=== PATIENT | female | born 1970 | race Caucasian/White ===

== ENCOUNTER 2020-11-23 10:47 | Emergency (ER) | payer MEDICARE, SELFPAY ==
[2020-11-23 11:06] VITALS: BP 129/78; PULSE 107; RESP 16; TEMP 36.6; O2SAT 99; BMI 23.6
--- NOTE | 2020-11-23 12:45 | ED_ITS ---
HPI - General Adult General: Chief complaint: General Medical Stated complaint: Need Fluid Removed Time Seen by Provider: 11/23/20 12:44 History of Present Illness: HPI narrative: Ms. Weinberg is a 50-year-old lady with significant history of stage IV pancreatic cancer who presents to the emergency department due to abdominal discomfort and concern over recurrence of ascites. She is currently undergoing chemotherapy and follows in [place] at [facility] for her oncology care. She has a local PCP. She continues to get chemotherapy as well as albumin infusions, last chemo was approximately 5 days ago and albumin infusion was 2 days ago. Over the past 3 weeks she has required 2 episodes of paracentesis for volume overload the last one was approximately 1 week ago. At that time, reportedly, ascites is felt to be malignant. She has had gradual onset of increased abdominal distention which causes lower extremity edema and mild shortness of breath. Intensity of symptoms is now moderate. The course has been worsening. She denies other golden ges in health, infectious symptoms, trauma, specific exacerbating or alleviating factors, or any other changes. Per outside records review patient's chemotherapy regimen started with FOLFIRINOX on 11/2018. Oxaliplatin discontinued and irinotecan dose decreased in early 2019. 11/05/2020 2300s cc fluid removed. 11/16/20 5000 cc paracentesis. Labs for note 11/19/2020 WBC 16.3, hemoglobin 9.5, platelets 271. Does have history of neutropenic fever, is on Neulasta. Outside imaging per note 09/21/2020 CT abdomen and pelvis. Interval placement of common bile duct stent with pneumobilia. 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 Review of Systems General: Reports: 10 or more systems reviewed and unremarkable except in HPI and below Physical Exam Narrative: EXAM NARRATIVE: GENERAL/CONSTITUTIONAL -chronically ill-appearing, frail. No acute distress. Nontoxic. Eyes - no conjunctival injection. No scleral icterus. ENMT - Atraumatic external nose and ears. Moist mucous membranes NECK - supple. trachea midline CARDIOVASCULAR - regular rate and rhythm. Bilateral lower extremity edema 2+. RESPIRATORY -clear to auscultation bilaterally. No retractions or accessory muscle use. ABDOMEN/GI - generalized tenderness to palpation, distended, fluid present. MSK - Extremities without obvious deformity or trauma SKIN - Warm, Dry NEURO - alert and appropriately oriented. Moves all extremities equally. PSYCH - Appropriate mood and affect Course ED course: - Patient was seen and evaluated by me at bedside - Patient placed on cardiac monitors, IV access obtained - Initial evaluation notable for chronically ill appearance, abdominal tenderness and distention consistent with reported history. - Labs notable for marked leukocytosis, difficult to interpret in the context of Neulasta use. Normocytic anemia. Metabolic panel notable for likely mild dehydration, potassium 5.3, creatinine 1.4. Fluids given. - Discussed case with Dr. Tang of radiology, paracentesis performed, patient tolerated procedure well. She had subjective improvement in symptoms. - Fluid analysis was notable for 289 PMNs per microliter in the ascites concerning for infection. - I discussed this finding at length with the patient. I recommended admission for IV antibiotics. The patient wishes for discharge with close follow-up despite this acknowledged recommendation. I explained risks and benefits of admission versus discharge, I answered all questions, the patient understands risks and benefits and expresses rational goal oriented thought process. She has capacity at this time to make medical decisions regarding her care. She plans to call her oncologist first thing in the morning. She understands that she may return to the emergency department for any reason at any time. - Prescriptions were discussed with the patient, including the far more limited evidence supporting an outpatient regimen. Patient verbalized understanding. - Patient discharged in fair condition. Vital Signs: Vital signs: Vital Signs Temperature 98.7 F 11/23/20 19:15 Pulse Rate 76 11/23/20 19:15 Respiratory Rate 17 11/23/20 19:15 Blood Pressure 110/78 11/23/20 19:15 Pulse Oximetry 96 11/23/20 19:15 MDM - General Adult Medical Records: Attestation: I reviewed the patient's medical records. Lab Data: Attestation: I reviewed the patient's lab results. Labs: Lab Results 11/23/20 11/23/20 11/23/20 14:05 14:05 14:05 WBC 47.4 10^3/uL H* 1 0^3/uL (4.0-10.0) RBC 2.86 10^6/uL L 10 ^6/uL (4.1-5.3) Hgb 8.4 g/dL L g/dL (11.5-15.3) Hct 27.6 % L % (37.0-47.0) MCV 96.5 fl fl (81-99) MCH 29.4 pg pg (28.0-34.0) MCHC 30.4 g/dL g/dL (30.0-36.0) RDW 17.1 % H % (12.1-15.1) Plt Count 282 10^3/cmm 10^3 /cmm (130-400) MPV 10.0 fL fL (7.4-10.4) Neut % (Auto) 97.3 % % Lymph % (Auto) 2.2 % % [place] % (Auto) 0.4 % % Eos % (Auto) 0.1 % % Baso % (Auto) 0.0 % % Neut # (Auto) 29.90 10^3/uL H 1 0^3/uL (1.8-7.7) Lymph # (Auto) 1.1 10^3/uL 10^3/ uL (0.8-4.8) [place] # (Auto) 0.2 10^3/uL 10^3/ uL (0.2-0.9) Eos # (Auto) 0.0 10^3/uL 10^3/ uL (0.0-0.8) Baso # (Auto) 0.0 10^3/uL 10^3/ uL (0.0-0.1) Nucleated RBC % (a uto) 0 % % Nucleated RBCs # 0.0 /100WBC /100W BC Differential Comme nt PT 16.20 SECONDS H S ECONDS (12.1-14.9) INR 1.26 H (0.8-1.2) APTT 30.2 SECONDS SECO NDS (23.9-36.7) Sodium 132 mmol/L L mmol /L (136-145) Potassium 5.3 mmol/L H mmol /L (3.5-5.1) Chloride 94 mmol/L L mmol/ L (98-107) Carbon Dioxide 27 mmol/L mmol/L (22-29) Anion Gap 16.3 (5-19) BUN 36 mg/dL H mg/dL (6-20) Creatinine 1.4 mg/dL H mg/dL (0.5-0.9) GFR Calculation 40.1 mL/min L mL/ min (90-130) Glucose 270 mg/dL H mg/dL (65-115) Calculated Osmolal ity 292 mOsm/kg mOsm/ kg (285-295) Calcium 8.3 mg/dL L mg/dL (8.5-10.5) Total Bilirubin 0.6 mg/dL mg/dL (0.15-1.2) AST 36 U/L H U/L (0-32) ALT 18 U/L U/L (0-33) Alkaline Phosphata se 391 IU/L H IU/L (35-105) Total Protein 6.5 g/dL L g/dL (6.6-8.7) Albumin 3.2 g/dL L g/dL (3.5-5.2) Globulin 3.3 g/dL g/dL (1.3-4.6) Fluid Color Fluid Appearance Fluid WBC Fluid RBC Fluid Tot Cell Cou nt Fld Polynuclear WB Cs # Fld Polynuclear WB Cs % Fl Mononucl WBCs # (Auto) Fl Mononuclear % A uto Fluid Glucose Fluid Total Protei n Fluid Albumin Fluid LDH Fluid Amylase Fluid Alk Phosphat ase Peritoneal Color Peritoneal Appeara nce Peritoneal WBC Peritoneal RBC Periton Mononu # A uto Mononuclear WBCs % Polynuclear WBCs % Perit Polynuc WBCs # Peritoneal Diff Co mmnt Peritoneal Tot Pro tein Peritoneal Albumin Peritoneal LDH Peritoneal Glucose Peritoneal Amylase 11/23/20 11/23/20 15:00 15:00 WBC RBC Hgb Hct MCV MCH MCHC RDW Plt Count MPV Neut % (Auto) Lymph % (Auto) [place] % (Auto) Eos % (Auto) Baso % (Auto) Neut # (Auto) Lymph # (Auto) [place] # (Auto) Eos # (Auto) Baso # (Auto) Nucleated RBC % (a uto) Nucleated RBCs # Differential Comme nt Cancelled PT INR APTT Sodium Potassium Chloride Carbon Dioxide Anion Gap BUN Creatinine GFR Calculation Glucose Calculated Osmolal ity Calcium Total Bilirubin AST ALT Alkaline Phosphata se Total Protein Albumin Globulin Fluid Color Cancelled Fluid Appearance Cancelled Fluid WBC Cancelled Fluid RBC Cancelled Fluid Tot Cell Cou nt Cancelled Fld Polynuclear WB Cs # Cancelled Fld Polynuclear WB Cs % Cancelled Fl Mononucl WBCs # (Auto) Cancelled Fl Mononuclear % A uto Cancelled Fluid Glucose Cancelled Fluid Total Protei n Cancelled Fluid Albumin Cancelled Fluid LDH Cancelled Fluid Amylase Cancelled Fluid Alk Phosphat ase Cancelled 61 IU/L IU/L Peritoneal Color Pale yellow (Pale Yellow) Peritoneal Appeara nce Hazy (Clear) Peritoneal WBC 600 /uL /uL Peritoneal RBC 0 10^3/uL 10^3/uL Periton Mononu # A uto 0.311 10^3/uL 10^ 3/uL Mononuclear WBCs % 51.800 % % Polynuclear WBCs % 48.200 % % Perit Polynuc WBCs # 0.289 10^3/uL 10^ 3/uL Peritoneal Diff Co mmnt Yes Peritoneal Tot Pro tein 2.6 g/dL g/dL Peritoneal Albumin 1.5 g/dL g/dL Peritoneal LDH 155.0 U/L U/L Peritoneal Glucose 248.0 mg/dL mg/dL Peritoneal Amylase 8 U/L L U/L (88-109) Discharge Plan Discharge Patient Disposition: Home Clinical Impression: Ascites, Abdominal pain, Leukocytosis Condition: Fair Prescriptions: New levofloxacin 750 mg tablet 750 mg PO DAILY 5 Days Qty: 5 RF: 0 No Action furosemide 40 mg tablet 80 mg PO BID@08,16 RF: 0 metolazone 2.5 mg tablet See Rx Instructions .ROUTE .COMPLEX RF: 0 magnesium 500 mg Tablet 500 mg PO DAILY RF: 0 Zyrtec 10 mg Tablet 10 mg PO DAILY PRN (Reason: Allergy Symptoms) RF: 0 ondansetron HCl 8 mg tablet 8 mg PO Q8H PRN (Reason: Nausea And Vomiting) RF: 0 venlafaxine 150 mg capsule,extended release 24hr 150 mg PO QAM RF: 0 morphine 100 mg tablet extended release 100 mg PO TID@00,08,16 RF: 0 insulin aspart U-100 [Novolog U-100 Insulin aspart] 100 unit/mL solution See Rx Instructions .ROUTE .COMPLEX RF: 0 Prilosec OTC 20 mg Tablet,Delayed Release (Dr/Ec) 20 mg PO QAM RF: 0 oxycodone 20 mg tablet 20 mg PO Q4H PRN (Reason: Pain) RF: 0 potassium chloride 20 mEq tablet extended release 40 meq PO BID RF: 0 Vitamin C 1 tab PO DAILY RF: 0 calcium 1 tab PO DAILY RF: 0 Centrum Silver Women 8 mg iron-400 mcg-300 mcg Tablet 1 tab PO DAILY RF: 0 Discharge Orders: Discharge ED (Routine); Ordered 10/11/21 Ordered By: Fahad Caraballo Referrals: Yu Benjamin MD [Primary Care Provider] - Discharge Diet: Usual diet Discharge Activity: Resume usual activity Patient Instructions: Leukocytosis (ED), Ascites (ED), Abdominal Pain (ED) Activity Restrictions/Additional Instructions: Thank you for visiting the emergency department. You were seen and evaluated for ascites. This is most likely secondary to your cancer. Labs revealed a markedly elevated white blood cell count which may be secondary to your medications. Additionally you were found to have an abnormally high level of white blood cells and your ascitic fluid analysis. As discussed, this is concerning for infection. The most validated treatment is IV antibiotics and we recommended admission which she declined at this time. You will be given a prescription for oral antibiotics. Please call your oncology team first thing in the morning. Please return to the emergency department for anything that you are concerned about and feel needs emergency department evaluation. Coding Level of Care Code ED [employer] for Maranda Butt
--- NOTE | 2020-11-23 13:41 | US_ITS ---
WS: [id number] ULTRASOUND-GUIDED THERAPEUTIC AND DIAGNOSTIC PARACENTESIS Procedure, risks, and complications have been explained to the patient. Consent is obtained. Utilizing aseptic technique and 1% buffered lidocaine, a small dermatome was made through which a 5 F rench Yueh catheter was inserted. Approximately 4300 ml of clear peritoneal fluid was obtained witho ut difficulty. No complications encountered. US/US paracentesis abd w [id number] IMPRESSION: Uncomplicated paracentesis yielding 3300 ml of peritoneal fluid. Specimen collected for analysis as requested.
[2020-11-23 14:06] VITALS: BP 140/87; PULSE 76; RESP 18; TEMP 36.7; O2SAT 96
[2020-11-23 14:18] LABS: Eosinophils % 0.1 %; Hematocrit 27.6 % (37.0-47.0); Hemoglobin 8.4 g/dL (11.5-15.3); Lymphocytes # 1.1 10^3/uL (0.8-4.8); Lymphocytes % 2.2 %; Mean Corpuscular HGB Conc 30.4 g/dL (30.0-36.0); Mean Corpuscular Hemoglobin 29.4 pg (28.0-34.0); Mean Corpuscular Volume 96.5 fl (81-99); Monocytes # 0.2 10^3/uL (0.2-0.9); Monocytes % 0.4 %; Nucleated Red Blood Cells % 0 %; Platelet Count 282 10^3/cmm (130-400); Red Blood Count 2.86 10^6/uL (4.1-5.3); Red Cell Distribution Width 17.1 % (12.1-15.1)
[2020-11-23 14:30] LABS: INR 1.26 (0.8-1.2)
[2020-11-23 14:31] LABS: Partial Thromboplastin Time 30.2 SECONDS (23.9-36.7)
[2020-11-23 14:43] LABS: Slide Review Slide Review Perform
[2020-11-23 14:44] LABS: Neutrophils % 97.3 %; White Blood Count 47.4 10^3/uL (4.0-10.0)
[2020-11-23 14:50] LABS: Alanine Aminotransferase 18 U/L (0-33); Albumin Level 3.2 g/dL (3.5-5.2); Alkaline Phosphatase 391 IU/L (35-105); Anion Gap 16.3 (5-19); Aspartate Amino Transferase 36 U/L (0-32); Blood Urea Nitrogen 36 mg/dL (6-20); Calcium 8.3 mg/dL (8.5-10.5); Carbon Dioxide 27 mmol/L (22-29); Chloride 94 mmol/L (98-107); Globulin 3.3 g/dL (1.3-4.6); Glomerular Filtration Rate 40.1 mL/min (90-130); Glucose 270 mg/dL (65-115); Osmolality Calculated 292 mOsm/kg (285-295); Potassium 5.3 mmol/L (3.5-5.1); Sodium 132 mmol/L (136-145); Total Bilirubin 0.6 mg/dL (0.15-1.2); Total Protein 6.5 g/dL (6.6-8.7)
[2020-11-23] MEDS: sodium chloride 0.9% 1,000 ML 999 ML IV (15:40)
[2020-11-23 16:15] LABS: Appearance, Peritoneal Fluid Hazy (Clear); Color, Peritoneal Fluid Pale Yellow (Pale Yellow)
[2020-11-23 16:16] LABS: RBC Pertioneal Fluid 0 10^3/uL; WBC Peritoneal Fluid 600 /uL
[2020-11-23 16:29] VITALS: BP 127/75; PULSE 74; RESP 18; TEMP 36.4; O2SAT 97
[2020-11-23 16:53] LABS: Albumin Peritoneal Fluid 1.5 g/dL; Amylase Peritoneal Fluid 8 U/L (88-109)
[2020-11-23 16:54] LABS: Fluid Alkaline Phos. 61 IU/L; Total Protein Peritoneal Fluid 2.6 g/dL
[2020-11-23 17:03] LABS: Mononuclear #, Pertinoneal Fl 0.311 10^3/uL; Polynuclear # Cells, Perit 0.289 10^3/uL
[2020-11-23 17:19] LABS: Pathology Referral Yes
--- NOTE | 2020-11-23 17:20 | PC.PHAR ---
pt and pts verified pts medications-pt states she gets chemo treatments every other week at [facility]-pt states she also get a kcl infusion and another infusion after her chemo treatments-pt states her lasix was increased to 80mg bid rx filled on 11/10/20 for 40mg bid-
[2020-11-23 19:08] VITALS: BP 108/65; PULSE 748; RESP 18; TEMP 37.1; O2SAT 96
[2020-11-23 19:15] VITALS: BP 110/78; PULSE 76; RESP 17; TEMP 37.1; O2SAT 96
== END 2020-11-23 19:18 | disposition home or self-care (01) ==
PROVIDERS: Emergency Provider Emergency Medicine; PCP Internal Medicine
DX: R10.9 Unspecified abdominal pain (principal); R18.8 Other ascites; D72.829 Elevated white blood cell count, unspecified; Z79.4 Long term (current) use of insulin
CPT/HCPCS: 36415; 49083; 80053; 80500; 82042; 82150; 82945; 83615; 84075; 84157; 85025; 85610; 85730; 87040; 87070; 87075; 87077; 87186; 87205; 89050; 96360; 99284; J7030

== ENCOUNTER 2020-12-02 07:51 | Outpatient (CLI) | payer MEDICARE, SELFPAY ==
--- NOTE | 2020-12-02 08:05 | US_ITS ---
WS: [id number] ULTRASOUND-GUIDED PARACENTESIS CLINICAL INFORMATION: MALIGNANT ASCITES COMPARISON: None. Procedure Informed consent: The risks, benefits, and alternatives of the procedure were discussed with the lily ent. Verbal and written consent was obtained. Timeout: A timeout was performed to confirm the correct patient, procedure, and site. Preparation: A suitable skin site was identified. The patient was prepped and draped in usual sterile fashion. Lidocaine 1% was used for local anesthesia. Catheter: 4 Tamazight One-step Yueh catheter. Side: Right Lower quadrant. Fluid Volume: 4900 ml Color: Clear yellow DISPOSITION: Discarded safely. Complications: None. Patient disposition: Discharged from the department in stable condition. US/US paracentesis abd w [id number] IMPRESSION: Uncomplicated ultrasound-guided paracentesis. Removal of 4900 cc
[2020-12-02 08:10] VITALS: BP 111/80; PULSE 110; RESP 18; TEMP 36.7; O2SAT 100
--- NOTE | 2020-12-02 08:22 | PC.NURSE ---
Pt to GI lab for US guided paracentesis due to malignant ascites. Dr. Bull at bedside. Time out performed. Approx 10 mL 1% Lidocaine used as local to right lower quadrant. 4900 mL clear yellow fluid drained. Pt tolerated well. BP within 10% of baseline. No albumin given.
[2020-12-02 09:16] VITALS: BP 94/68; PULSE 102; RESP 18; O2SAT 99
== END 2020-12-02 07:52 | disposition home or self-care (01) ==
PROVIDERS: PCP Internal Medicine; Visit Provider Internal Medicine Hematology & Oncology
DX: C25.0 Malignant neoplasm of head of pancreas (principal); R18.0 Malignant ascites
CPT/HCPCS: 49083